=== PATIENT | female | born 1950 | race Caucasian/White ===

== ENCOUNTER → 2024-10-09 | Outpatient (REF) | payer MEDICAID ==
[2024-10-09 12:17] LABS: HEMATOCRIT 33.3 % (36.0-47.0); HEMOGLOBIN 10.4 g/dl (12.0-15.5); MEAN CORPUSCULAR HEMOGLOBIN 27.5 pg (27.0-33.0); MEAN CORPUSCULAR HGB CONC 31.2 g/dl (32.0-36.5); MEAN CORPUSCULAR VOLUME 88.1 fl (80.0-96.0); PLATELET COUNT, AUTOMATED 349 10^3/uL (150-450); RED BLOOD COUNT 3.78 10^6/uL (4.00-5.40)
[2024-10-09 12:42] LABS: HEMOGLOBIN A1c 5.6 % (4.0-6.0)
[2024-10-09 12:56] LABS: ALBUMIN 3.1 G/DL (3.2-5.2); BILIRUBIN,TOTAL 0.6 MG/DL (0.3-1.2); CALCIUM LEVEL 8.5 MG/DL (8.3-10.6); CREATININE FOR GFR 1.2 MG/DL (0.55-1.30); POTASSIUM SERUM 5.3 MMOL/L (3.5-5.1); TOTAL 25(OH) VITAMIN D 13.7 NG/ML (20.0-100.0); TOTAL PROTEIN 6.9 G/DL (5.7-8.2)
== END ==
LOC: SKLAB3 11:08
PROVIDERS: ATTEND Internal Medicine
DX: E11.9 Type 2 diabetes mellitus without complications (principal)

== ENCOUNTER → 2024-10-10 | Outpatient (REF) | payer MEDICAID ==
[2024-10-10 15:11] LABS: KETONE, URINE AUTO RFX NEGATIVE (NEGATIVE); NITRITE, URINE AUTO RFX NEGATIVE (NEGATIVE); RBC, URINE AUTO RFX TNTC /HPF (0-3); SQUAM EPITHELIAL CELL UR AURFX 0 /HPF (0-6)
[2024-10-10 15:16] LABS: LEUKOCYTE ESTERASE UR AUTO RFX 3+ (NEGATIVE); WBC, URINE AUTO RFX TNTC /HPF (0-3)
== END ==
LOC: SKLAB3 13:36
PROVIDERS: ATTEND Internal Medicine
DX: R30.0 Dysuria (principal)

== ENCOUNTER → 2024-10-11 | Outpatient (REF) | payer SELFPAY | LOC: SKLAB3 07:27 | PROVIDERS: ATTEND Internal Medicine | DX: M81.0 Age-related osteoporosis without current pathological fracture (principal); Z91.81 History of falling ==

== ENCOUNTER → 2024-11-15 | Outpatient (REF) | payer MEDICAID ==
[2024-11-15 14:41] LABS: KETONE, URINE AUTO RFX NEGATIVE (NEGATIVE); LEUKOCYTE ESTERASE UR AUTO RFX 3+ (NEGATIVE); NITRITE, URINE AUTO RFX POSITIVE (NEGATIVE); RBC, URINE AUTO RFX TNTC /HPF (0-3); SQUAM EPITHELIAL CELL UR AURFX 5 /HPF (0-6); WBC, URINE AUTO RFX TNTC /HPF (0-3)
== END ==
LOC: SKLAB2 14:21
PROVIDERS: ATTEND Internal Medicine
DX: R41.82 Altered mental status, unspecified (principal)

== ENCOUNTER → 2024-11-16 | Outpatient (REF) | payer MEDICAID | LOC: SKLAB2 11:14 → EEVIPCON 11:14 | PROVIDERS: ATTEND Internal Medicine | DX: M25.532 Pain in left wrist (principal); M79.642 Pain in left hand; S62.397A Other fracture of fifth metacarpal bone, left hand, initial encounter for closed fracture; W19.XXXA Unspecified fall, initial encounter; Y92.129 Unspecified place in nursing home as the place of occurrence of the external cause; Y93.9 Activity, unspecified ==

== ENCOUNTER → 2024-12-06 | Outpatient (CLI) | payer MEDICAID | LOC: M RAD 12:41 | PROVIDERS: ATTEND Internal Medicine | DX: R07.81 Pleurodynia (principal); S22.42XA Multiple fractures of ribs, left side, initial encounter for closed fracture; W19.XXXA Unspecified fall, initial encounter; Y92.9 Unspecified place or not applicable; Y93.9 Activity, unspecified; Y99.8 Other external cause status ==

== ENCOUNTER → 2024-12-06 | Outpatient (REF) | payer MEDICAID | LOC: SKLAB2 08:30 | PROVIDERS: ATTEND Internal Medicine | DX: Z53.8 Procedure and treatment not carried out for other reasons (principal) ==

== ENCOUNTER → 2024-12-07 | Outpatient (REF) | payer MEDICAID ==
[2024-12-07 06:54] LABS: BASO % 0.4 % (0.0-1.0); EOS # 0.1 10^3/uL (0.0-0.5); EOS % 1.4 % (0.0-3.0); HEMATOCRIT 31.7 % (36.0-47.0); LYMPH # 1.6 10^3/uL (1.5-5.0); LYMPH % 29.6 % (24.0-44.0); MEAN CORPUSCULAR HEMOGLOBIN 25.9 pg (27.0-33.0); MEAN CORPUSCULAR HGB CONC 31.5 g/dl (32.0-36.5); MEAN CORPUSCULAR VOLUME 82.1 fl (80.0-96.0); MONO # 0.7 10^3/uL (0.0-0.8); MONO % 12.3 % (2.0-8.0); NEUTROPHILS # 3.1 10^3/uL (1.5-8.5); NEUTROPHILS % 55.6 % (36.0-66.0); PLATELET COUNT, AUTOMATED 332 10^3/uL (150-450); RED BLOOD COUNT 3.86 10^6/uL (4.00-5.40); WHITE BLOOD COUNT 5.5 10^3/uL (4.0-10.0)
[2024-12-07 07:25] LABS: CALCIUM LEVEL 8.4 MG/DL (8.3-10.6); CREATININE FOR GFR 1.15 MG/DL (0.55-1.30); GLOMERULAR FILTRATION RATE 49.4 (>39); POTASSIUM SERUM 4.7 MMOL/L (3.5-5.1)
== END ==
LOC: SKLAB2 07:00
PROVIDERS: ATTEND Internal Medicine
DX: F03.90 Unspecified dementia, unspecified severity, without behavioral disturbance, psychotic disturbance, mood disturbance, and anxiety (principal)

== ENCOUNTER → 2024-12-10 | Outpatient (REF) | LOC: M EKG 11:06 | PROVIDERS: ATTEND Internal Medicine | DX: Z13.6 Encounter for screening for cardiovascular disorders (principal); Z79.899 Other long term (current) drug therapy; I49.8 Other specified cardiac arrhythmias ==

== ENCOUNTER → 2024-12-14 | Outpatient (REF) | payer MEDICAID | LOC: SKLAB6 14:43 | PROVIDERS: ATTEND Internal Medicine | DX: M79.604 Pain in right leg (principal); Z91.81 History of falling; M81.0 Age-related osteoporosis without current pathological fracture ==

== ENCOUNTER → 2024-12-15 | Outpatient (CLI) | payer MEDICAID | LOC: M RAD 14:53 | PROVIDERS: ATTEND Nurse Practitioner Family | DX: S62.307A Unspecified fracture of fifth metacarpal bone, left hand, initial encounter for closed fracture (principal); W19.XXXA Unspecified fall, initial encounter; Y93.9 Activity, unspecified; Y92.9 Unspecified place or not applicable ==

== ENCOUNTER → 2024-12-19 | Outpatient (CLI) | payer MEDICAID | LOC: M WHC 11:02 | PROVIDERS: ATTEND Nurse Practitioner Family | DX: M81.0 Age-related osteoporosis without current pathological fracture (principal) ==

== ENCOUNTER → 2024-12-22 | Outpatient (REF) | payer MEDICAID | LOC: SKLAB6 11:25 | PROVIDERS: ATTEND Internal Medicine | DX: S62.397D Other fracture of fifth metacarpal bone, left hand, subsequent encounter for fracture with routine healing (principal) ==

== ENCOUNTER 2024-12-28 02:05 | Emergency (ER) | payer MEDICAID ==
[~2024-12-28] VITALS: Ht 167.6 cm; Wt 69.1 kg
[2024-12-28 06:31] VITALS: BP 116/55
[2024-12-28 06:46] VITALS: TEMP 96.8; O2SAT 97
[2024-12-28] MEDS: ACETAMINOPHEN 500 MG TAB PO ONE (07:02)
== END 2024-12-28 07:03 | disposition short-term general hospital (02) ==
LOC: M ED 02:05
DX: S02.2XXA Fracture of nasal bones, initial encounter for closed fracture (principal); S02.85XA Fracture of orbit, unspecified, initial encounter for closed fracture; W06.XXXA Fall from bed, initial encounter; Y92.9 Unspecified place or not applicable; Y93.9 Activity, unspecified; Y99.9 Unspecified external cause status; Z88.1 Allergy status to other antibiotic agents

== ENCOUNTER → 2025-01-07 | Outpatient (CLI) | payer MEDICAID ==
[~2025-01-07] MED LIST: ACET-1515 PO; CALCCAP4 PO; CEFD1CAP9 PO; CYAN500T20 PO; DONE10TA90 PO; ERGO500029 PO; GABA-1171 PO; METH-855 PO; SERO1TAB3 PO; SERO50TA PO; SERT-141 PO; VITA500C24 PO
[2025-01-07 23:13] LABS: APPEARANCE, URINE CLOUDY (CLEAR); BACTERIA, URINE AUTO 1+ (NEGATIVE); BILIRUBIN, URINE AUTO NEGATIVE (NEGATIVE); BLOOD, URINE BLOOD 2+ (NEGATIVE); COLOR, URINE AMBER (YELLOW); GLUCOSE, URINE (UA) AUTO NEGATIVE (NEGATIVE); KETONE, URINE AUTO NEGATIVE (NEGATIVE); LEUKOCYTE ESTERASE, URINE AUTO 3+ (NEGATIVE); NITRITE, URINE AUTO NEGATIVE (NEGATIVE); PROTEIN, URINE AUTO 2+ mg/dL (NEGATIVE); RBC, URINE AUTO 46 /HPF (0-3); SPECIFIC GRAVITY URINE AUTO 1.013 (1.002-1.035); SQUAMOUS EPITHELIAL CELL UR AU 0 /HPF (0-6); UROBILINOGEN, URINE AUTO 0.2 mg/dL (0.0-2.0); WBC, URINE AUTO TNTC /HPF (0-3)
== END ==
LOC: SKLAB6 22:26 → M LAB 22:26
PROVIDERS: ATTEND Nurse Practitioner Family
DX: R41.82 Altered mental status, unspecified (principal)

== ENCOUNTER → 2025-04-10 | Outpatient (CLI) | payer MEDICAID | LOC: M RAD 14:40 | PROVIDERS: ATTEND Specialist | DX: R31.9 Hematuria, unspecified (principal); R32 Unspecified urinary incontinence; N13.30 Unspecified hydronephrosis; N28.1 Cyst of kidney, acquired; N32.89 Other specified disorders of bladder ==

== ENCOUNTER → 2025-05-17 | Outpatient (REF) | payer MEDICAID ==
[~2025-05-17] MED LIST changes: +METH-1100 PO; -METH-855 PO
== END ==
LOC: SKLAB6 12:55
PROVIDERS: ATTEND Internal Medicine
DX: M79.662 Pain in left lower leg (principal)

== ENCOUNTER → 2025-06-21 | Outpatient (REF) | payer MEDICAID ==
[2025-06-21 08:21] LABS: PLATELET COUNT, AUTOMATED 291 10^3/uL (150-450)
[2025-06-21 08:48] LABS: ALT/SGPT < 9 U/L (7.0-40); AST/SGOT 12 U/L (<34); CALCIUM LEVEL 8.8 MG/DL (8.3-10.6); CARBON DIOXIDE LEVEL 24 MMOL/L (20-31); CHLORIDE LEVEL 107 MMOL/L (98-107); CREATININE FOR GFR 1.66 MG/DL (0.55-1.30); GLOMERULAR FILTRATION RATE 32.4 (>39); PHOSPHORUS LEVEL 3.9 MG/DL (2.4-5.1); POTASSIUM SERUM 5.4 MMOL/L (3.5-5.1); PTH INTACT 93.7 PG/ML (18.5-88.0); SODIUM LEVEL 142 MMOL/L (136-145); VITAMIN B12 LEVEL 1411 PG/ML (211-911)
[2025-06-21 08:49] LABS: TOTAL 25(OH) VITAMIN D 41.5 NG/ML (20.0-100.0)
[2025-06-21 09:27] LABS: ESTIMATED AVERAGE GLUCOSE 117.0 MG/DL (60-110)
== END ==
LOC: SKLAB6 07:00
PROVIDERS: ATTEND Family Medicine
DX: E53.8 Deficiency of other specified B group vitamins (principal); E11.9 Type 2 diabetes mellitus without complications

== ENCOUNTER → 2025-06-29 | Outpatient (REF) | payer MEDICAID ==
[2025-06-29 12:48] LABS: CALCIUM LEVEL 8.4 MG/DL (8.3-10.6); CARBON DIOXIDE LEVEL 25.0 MMOL/L (20-31); CHLORIDE LEVEL 104.0 MMOL/L (98-107); CREATININE FOR GFR 1.5 MG/DL (0.55-1.30); GLOMERULAR FILTRATION RATE 36.6 (>39); POTASSIUM SERUM 4.9 MMOL/L (3.5-5.1); SODIUM LEVEL 138.0 MMOL/L (136-145)
== END ==
LOC: SKLAB6 11:33
PROVIDERS: ATTEND Family Medicine
DX: E87.5 Hyperkalemia (principal)

== ENCOUNTER 2025-07-22 08:53 | Emergency (ER) | payer MEDICAID, MEDICARE ==
[~2025-07-22] VITALS: Ht 162.6 cm; Wt 81.4 kg
[2025-07-22 09:12] VITALS: TEMP 97.9
[2025-07-22 11:24] VITALS: BP 128/62; O2SAT 93
[2025-07-22] MEDS: ACETAMINOPHEN 325 MG TAB PO ONE (12:56)
== END 2025-07-22 13:11 | disposition home or self-care (01) ==
LOC: M ED 08:53
DX: S06.0X0A Concussion without loss of consciousness, initial encounter (principal); S40.011A Contusion of right shoulder, initial encounter; S40.012A Contusion of left shoulder, initial encounter; S80.01XA Contusion of right knee, initial encounter; S80.02XA Contusion of left knee, initial encounter; Y92.9 Unspecified place or not applicable; Y93.9 Activity, unspecified; Y99.9 Unspecified external cause status; W01.0XXA Fall on same level from slipping, tripping and stumbling without subsequent striking against object, initial encounter; M16.11 Unilateral primary osteoarthritis, right hip; I25.119 Atherosclerotic heart disease of native coronary artery with unspecified angina pectoris; E10.9 Type 1 diabetes mellitus without complications; E55.9 Vitamin D deficiency, unspecified; Z87.891 Personal history of nicotine dependence; Z88.1 Allergy status to other antibiotic agents

== ENCOUNTER → 2025-08-15 | Outpatient (REF) | payer MEDICAID | LOC: SKLAB6 07:00 | PROVIDERS: ATTEND Family Medicine | DX: Z11.2 Encounter for screening for other bacterial diseases (principal); Z20.818 Contact with and (suspected) exposure to other bacterial communicable diseases ==

== ENCOUNTER → 2025-08-26 | Outpatient (CLI) | payer MEDICAID | LOC: M RAD 16:15 | PROVIDERS: ATTEND Internal Medicine | DX: S09.93XA Unspecified injury of face, initial encounter (principal); Z53.9 Procedure and treatment not carried out, unspecified reason ==

== ENCOUNTER → 2025-08-26 | Outpatient (REF) | payer MEDICAID | LOC: SKLAB6 14:55 | PROVIDERS: ATTEND Internal Medicine | DX: Z13.828 Encounter for screening for other musculoskeletal disorder (principal); Z91.81 History of falling ==